=== PATIENT | male | born 1975 | race African-American/Black ===

== ENCOUNTER 2018-01-30 09:19 | Emergency (ER) | payer SELFPAY ==
[2018-01-30] MEDS ORDERED: Adacel (T-DAP) 0.5 ML VIAL ONE (10:05)
[2018-01-30] MEDS ORDERED: Bacitracin Zinc 1 Packet ONE (10:34)
--- NOTE | 2018-01-30 10:41 | CT ---
CT HEAD NONCONTRAST: History: Head injury. FINDINGS: There is no evidence of acute intracranial hemorrhage or infarct. Ventricles appear normal in size, s hape, and position. There is no mass effect or shift of midline structures. Visualized paranasal sinu ses remain well aerated. Scalp injury is apparent over the left side. IMPRESSION: No acute intracranial abnormalities are demonstrated. POS: H
== END 2018-01-30 10:57 ==
LOC: ERS 09:19
DX: S01.01XA Laceration without foreign body of scalp, initial encounter (principal); I10 Essential (primary) hypertension; Z79.899 Other long term (current) drug therapy; Y08.89XA Assault by other specified means, initial encounter
CPT/HCPCS: 12001; 70450; 90471; 90715

== ENCOUNTER 2018-05-14 12:35 | Emergency (ER) | payer SELFPAY | END 2018-05-14 14:49 | disposition left against medical advice (07) | LOC: ERS 12:35 | DX: Z53.21 Procedure and treatment not carried out due to patient leaving prior to being seen by health care provider (principal) | CPT/HCPCS: 87804 ==